=== PATIENT | male | born 1960 | race Caucasian/White ===

== ENCOUNTER 2017-02-27 16:19 | Emergency (ER) | payer OTHER, BC ==
[~2017-02-27] VITALS: Ht 175.3 cm; Wt 100.0 kg
[2017-02-27] MEDS ORDERED: METFORMIN500 M1 PO (16:40)
[2017-02-27] MEDS ORDERED: SYNTHROID50 MCG PO (16:41)
[2017-02-27] MEDS ORDERED: SINGULAIR10 MG PO (16:41)
[2017-02-27] MEDS ORDERED: AMLODIPINE5 MG PO (16:41)
[2017-02-27] MEDS ORDERED: TESTOST CYP100 MG/ML IM (16:42)
[2017-02-27] MEDS ORDERED: FENOFIBRATE160 MG PO (16:43)
[2017-02-27] MEDS ORDERED: FLEXERIL PO (17:05)
[2017-02-27] MEDS ORDERED: TRAMADOL HYDROC50 MG PO (17:05)
[2017-02-27] MEDS ORDERED: EC-NAPROSYN500 MG PO (17:05)
[2017-02-27 18:26] VITALS: BP 177/98
== END 2017-02-27 18:33 | disposition home or self-care (01) | DRG 552 ==
LOC: ED 16:19
DX: S16.1XXA Strain of muscle, fascia and tendon at neck level, initial encounter (principal); M54.2 Cervicalgia; M54.6 Pain in thoracic spine; V43.52XA Car driver injured in collision with other type car in traffic accident, initial encounter; Y92.413 State road as the place of occurrence of the external cause